=== PATIENT | male | born 1980 | race Caucasian/White ===

== ENCOUNTER 2016-09-10 10:41 | Emergency (ER) | payer OTHER, SELFPAY ==
[2016-09-10 11:33] LABS: PTT 27.9 SEC (22.9-36.1); Prothrombin Time 15.7 SEC (12.0-14.7)
[2016-09-10 11:38] LABS: Bilirubin Negative (Negative); Blood, Urine Trace (Negative); Glucose, Urine (Dipstick) Negative (Negative); Ketone, Urine 80 mg/dL (Negative); Nitrite Positive (Negative); Protein, Urine (Dipstick) 100 mg/dL (Neg-Trace)
[2016-09-10 11:39] LABS: Bacteria/HPF 1+ HPF (None Seen); RBC/HPF 0-3 HPF (0-3); Squamous Epithelial 0-3 HPF (0-3); WBC/HPF 0-3 HPF (0-3)
[2016-09-10 11:46] LABS: ALT (SGPT) 132 U/L (0-55); AST (SGOT) 159 U/L (5-34); Alkaline Phosphatase 105 U/L (40-150); Anion Gap 19 mmol/L (10-20); BUN (Urea Nitrogen) 5 mg/dL (8.9-20.6); Bilirubin, Total 2.1 mg/dL (0.2-1.2); Calc. Creatinine Clearance 0 mL/min (70-130); Carbon Dioxide 20 mmol/L (22-29); Chloride 99 mmol/L (98-107); Estimated GFR-MDRD Greater than 90; Globulin 3.7 g/dL (2.4-3.5); Lipase 385 U/L (8-78); Protein, Total 7.7 g/dL (6.0-8.3)
[2016-09-10 11:53] LABS: #Basophils 0.1 thou/uL (0.0-0.2); #Eosinphils 0.1 thou/uL (0.0-0.7); #Monocytes 0.9 thou/uL (0.11-0.59); %Basophils 0.6 % (0.0-1.0); %Eosinophils 0.6 % (0.0-10.0); %Monocytes 5.2 % (0.0-10.0); Hematocrit 50.1 % (42.0-52.0); Macrocytosis SLIGHT = 6-15 cells (100X) (0-5/hpf); Red Blood Cell (RBC) Count 4.92 mill/uL (4.70-6.10); White Blood Cell (WBC) Count 17.1 thou/uL (4.8-10.8)
[2016-09-10 11:54] LABS: Methadone Not Detected (NotDetected); Methamphetamine Not Detected (NotDetected)
[2016-09-10] MEDS ORDERED: Pantoprazole 40 MG VIAL ONE (12:11)
[2016-09-10 12:31] LABS: Band 3 % (5-11); Neutrophil 82 % (42-75)
--- NOTE | 2016-09-10 20:38 | CT ---
CT ABDOMEN AND PELVIS WITH CONTRAST 09/10/[address] of the abdomen and pelvis was done with IV contrast only. Oral contrast was withheld by re quest. Axial slices were acquired and coronal reconstructions were done. Comparison is made with the prior CT scan dated 02/02/14. The lung bases are clear. No effusions are seen. The liver is mildly enlarged and shows diffuse fatty infiltration. Its appearance is little differen t than the prior exam. A 2 cm enhancing mass in the right lobe near the dome of the diaphragm is kath ost certainly a hemangioma given its characteristics. It was present in 2013 and has not changed in size. There is probably a second smaller hemangioma in the medial right lobe near the addy hepatis. The spleen is normal in size. The major finding on this study is marked streaking around the patient's pancreas along with some fl uid in the abdomen around the vicinity, all suggestive of acute pancreatitis. I see no pseudocyst or abscess at this point in time. The patient's duodenum is mildly dilated and fluid filled, probably a reaction to the adjacent pancreatitis. No stones were appreciated in the gallbladder, though ultra sound would be much more sensitive to that. There is no sign of dilated bile ducts. The kidneys show no solid mass or hydronephrosis but there are some nonobstructing calculi in the le ft kidney. No ureteral calculi are seen. The adrenal glands appear normal. The aorta shows no dilati on. CT of the pelvis showed no localized inflammatory changes here, though some of the fluid from the up per abdomen has tracked down into the lower pelvis on the right side. The bowel shows no dilation or signs of obstruction. IMPRESSION: 1. The findings are consistent with acute pancreatitis, moderately severe in degree, with an im pressive amount of inflammatory streaking and fluid. 2. Nonobstructing left renal calculi. 3. Large fatty liver with at least one area that is probably a small hemangioma in the dome, an d a smaller one yet below it. These have not changed since 2013. The findings discussed with Dr. Elliott at 12:55 on 09/10/16. POS: HOME
== END 2016-09-10 14:10 | disposition short-term general hospital (02) ==
LOC: BURERS 10:41
DX: S27.331A Laceration of lung, unilateral, initial encounter (principal); K85.90 Acute pancreatitis without necrosis or infection, unspecified; K70.10 Alcoholic hepatitis without ascites; F17.210 Nicotine dependence, cigarettes, uncomplicated; Z87.442 Personal history of urinary calculi; X58.XXXA Exposure to other specified factors, initial encounter
CPT/HCPCS: 74177; 80053; 80306; 81003; 81015; 83690; 85025; 85610; 85730; 94760; 96361; 96365; C9113